=== PATIENT | female | born 1990 | race Caucasian/White ===

== ENCOUNTER 2022-03-30 18:58 | Emergency (ER) | payer OTHER ==
[~2022-03-30] VITALS: Ht 175.3 cm; Wt 135.1 kg
[2022-03-30] MEDS ORDERED: ondansetron 4mg rapidly disintigrating tab PO ONE (20:55)
--- NOTE | 2022-03-30 21:21 | NUR ---
PT TOLERATED PO CHALLEGE OF SANDWICH AND JUICE.
[2022-03-30] MEDS ORDERED: ONDA4TAB12 PO (22:14)
[2022-03-30 22:20] VITALS: BP 111/70
== END 2022-03-30 22:47 | disposition home or self-care (01) ==
LOC: ER 18:59
DX: J06.9 Acute upper respiratory infection, unspecified (principal); Z20.822 Contact with and (suspected) exposure to COVID-19; R51.9 Headache, unspecified; G89.29 Other chronic pain
CPT/HCPCS: 87502; 87503; 87635; 99285; C9803